=== PATIENT | female | born 1970 | race Hispanic/Latino ===

== ENCOUNTER 2017-04-13 19:08 | Emergency (ER) | payer OTHER ==
[~2017-04-13] VITALS: Ht 152.4 cm; Wt 59.0 kg
[~2017-04-13 19:08] MED LIST: CIPR-225 PO; DOCU-143 PO; HYDR-3812 PO; HYDR-757 PO; METR500T PO; ONDA4TAB8 PO; PANT40TA2 PO; PRD20T PO; PROM25SU43 RC; SULF1TAB35 PO
[2017-04-13] MEDS ORDERED: IBUP200C75 PO (19:24)
[2017-04-13] MEDS ORDERED: CYCLOBENZAPRINE 10 MG (FLEXERIL) TAB PO STA (19:35)
[2017-04-13] MEDS ORDERED: HYDROcodone/APAP 5 MG/325 MG (LORTAB) TAB PO STA (19:35)
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
[2017-04-13] MEDS ORDERED: HYDR-3812 PO (20:51)
[2017-04-13] MEDS ORDERED: CYCL10TA9 PO (20:51)
[2017-04-13] MEDS ORDERED: SULF1TAB35 PO (21:02)
[2017-04-13 21:14] VITALS: BP 126/82
== END 2017-04-13 21:14 | disposition home or self-care (01) ==
LOC: EDUNIT# 19:08 → ER 19:13
DX: S46.912A Strain of unspecified muscle, fascia and tendon at shoulder and upper arm level, left arm, initial encounter (principal); S80.01XA Contusion of right knee, initial encounter; S20.212A Contusion of left front wall of thorax, initial encounter; S09.90XA Unspecified injury of head, initial encounter; L03.012 Cellulitis of left finger; V43.62XA Car passenger injured in collision with other type car in traffic accident, initial encounter; Y92.410 Unspecified street and highway as the place of occurrence of the external cause; Y99.8 Other external cause status
CPT/HCPCS: 70450; 71020; 73030; 73140; 73562; 99282

== ENCOUNTER → 2018-01-19 | Outpatient (CLI) | payer OTHER ==
[~2018-01-19] MED LIST changes: +ACHD5005 PO; +CYCL10TA9 PO; -HYDR-3812 PO; +IBUP200C75 PO
--- NOTE | 2018-01-19 19:03 | Diagnostic Imaging Report ---
INDICATION: Routine screening. No prior mammograms are available for comparison. This is a baseline study. The current study was also evaluated with a Computer Aided Detection (CAD) system. Moderate parenchymal density and heterogeneity is identified bilaterally, limiting the sensitivity of mammography. There are some calcifications in the inferior aspect of the right breast, mid to posterior depth. Additional views including magnification views are recommended. No mass is seen. The axillae are unremarkable. IMPRESSION: Right breast calcifications. Additional views are recommended for further evaluation. ACR BI-RADS Category 0: Incomplete. (Needs additional imaging evaluation). Result letter will be mailed to the patient. Note: At least 10% of breast cancer is not imaged by mammography. Dictated by: Dictated on workstation # [id number]
== END ==
LOC: RAD 10:11
PROVIDERS: ATTEND Nurse Practitioner Family
DX: Z12.31 Encounter for screening mammogram for malignant neoplasm of breast (principal)
CPT/HCPCS: 77067

== ENCOUNTER → 2018-01-27 | Outpatient (CLI) | payer OTHER ==
--- NOTE | 2018-01-30 17:39 | Diagnostic Imaging Report ---
EXAM: Unilateral diagnostic right mammogram. INDICATION: Abnormal screening mammogram. The screening mammogram performed on 01/19/2018 noted microcalcifications in the inferior aspect of the right breast at posterior depth. On the craniocaudad view of this study, there are 2 groups of microcalcifications in this area. One is near midline and the other lies at the same level approximately 1.4 cm laterally. Compression/magnification views of these calcifications show that they are somewhat pleomorphic and technically indeterminate. I would recommend a stereotactic biopsy of the calcifications near midline be performed to exclude malignancy. If these calcifications proved to be malignant, then the other group of microcalcifications may need to be biopsied, as well. IMPRESSION: The calcifications in the right breast are technically indeterminate. A stereotactic biopsy would be recommended to exclude malignancy. These results will be called to Dr. Susy Cruz. ACR category 4, Suspicious. ACR BI-RADS Category 4: Suspicious abnormality. Result letter will be mailed to the patient. Note: At least 10% of breast cancer is not imaged by mammography. Dictated on workstation # [id number]
== END ==
LOC: RAD 08:41
PROVIDERS: ATTEND Nurse Practitioner Family
DX: R92.8 Other abnormal and inconclusive findings on diagnostic imaging of breast (principal)

== ENCOUNTER → 2018-02-22 | Outpatient (CLI) | payer OTHER ==
[~2018-02-22] VITALS: Ht 152.4 cm; Wt 59.0 kg
[~2018-02-22] MED LIST changes: +LIDOCAINE 1% INJ 20 ML 20 ML VIAL INJ ONE; +LIDOCAINE 1% INJ 50 ML (XYLOCAINE) VIAL ONE
[2018-02-22 10:38] VITALS: BP 134/78
[2018-02-22 11:36] VITALS: BP 124/80
--- NOTE | 2018-02-23 21:09 | Diagnostic Imaging Report ---
INDICATION: Abnormal microcalcifications. EXAMINATION: Stereotactic biopsy of right breast. PROCEDURE: The diagnostic mammogram performed on 01/27/2018 noted a group of indeterminate calcifications in the central portion of the right breast. Following aseptic preparation of the skin and administration of local anesthesia, the calcifications in question were biopsied using a stereotactic device. Multiple specimens were obtained. Several of the specimens do appear to contain calcifications. Following the procedure, a clip was inserted. However, the clip did not deploy. The post procedure mammogram performed at a separate workstation did show a defect in the region of the calcifications. The calcifications in question were difficult to identify and I do feel that the area in question has been adequately sampled. The patient tolerated the procedure well and was dismissed in good condition. IMPRESSION: There has been a successful stereotactic biopsy of the microcalcifications in the midportion of the right breast. A final pathology report is pending. Dictated by: Dictated on workstation # [id number]
== END ==
LOC: RAD 10:14
PROVIDERS: ATTEND Nurse Practitioner Family
DX: D05.81 Other specified type of carcinoma in situ of right breast (principal)
CPT/HCPCS: 19081

== ENCOUNTER → 2018-03-06 | Outpatient (CLI) | payer OTHER ==
[~2018-03-06] MED LIST changes: +IBUP-2185 PO; -IBUP200C75 PO; -LIDOCAINE 1% INJ 20 ML 20 ML VIAL INJ ONE; -LIDOCAINE 1% INJ 50 ML (XYLOCAINE) VIAL ONE
--- NOTE | 2018-03-06 16:12 | Diagnostic Imaging Report ---
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 COMPARISON: Correlation is made with mammograms dating back to 01/19/2018. TECHNIQUE: Right-sided CC and ML 3-D mammography was performed. The current study was also evaluated with a Computer Aided Detection (CAD) system. FINDINGS: There is moderate density in the right breast. The grouping of microcalcifications within the posterior aspect of the right breast at the nipple line have been stereotactically removed. There may be a few remaining calcifications. There are additional calcifications just lateral to this at the same depth. These appear to be inferiorly located on the ML view. No associated soft tissue mass is seen. IMPRESSION: Status posterior stereotactic removal of a cluster of microcalcifications in the posterior right breast at inferior depth. There is a grouping just lateral to this which is also suspicious. Sampling of these calcifications with stereotactic biopsy could be performed versus performance of a needle localization procedure including this grouping along the needle tract for surgical excision could be performed. ACR BI-RADS Category 4: Suspicious abnormality. Result letter will be mailed to the patient. Note: At least 10% of breast cancer is not imaged by mammography. Dictated by: Dictated on workstation # [id number]
== END ==
LOC: RAD 13:55
PROVIDERS: ATTEND Nurse Practitioner Family
DX: D05.11 Intraductal carcinoma in situ of right breast (principal); R92.8 Other abnormal and inconclusive findings on diagnostic imaging of breast

== ENCOUNTER 2018-03-17 07:17 | Day surgery (SDC) | payer SELFPAY ==
[~2018-03-17] VITALS: Ht 152.4 cm; Wt 59.0 kg
[~2018-03-17 07:17] MED LIST changes: -IBUP-2185 PO; +IBUP200C75 PO
[2018-03-17] MEDS ORDERED: LIDOCAINE 1% INJ 50 ML (XYLOCAINE) VIAL ONE (07:28)
[2018-03-17 07:30] VITALS: BP 121/94
[2018-03-17] MEDS ORDERED: LIDOCAINE 1% INJ 50 ML (XYLOCAINE) VIAL IJ ONE (07:30)
[2018-03-17] MEDS ORDERED: LACTATED RINGERS 1,000 ML IV PRN (07:41)
[2018-03-17] MEDS ORDERED: BUP/EPI 0.5% 1:200,000 (SENSORCAINE) 30 ML VIAL ONE (07:41)
[2018-03-17] MEDS ORDERED: ceFAZolin INJECTION 1,000 MG in NS (IVPB) 100 ML IV ONE (07:45)
[2018-03-17] MEDS ORDERED: proPOfol 200 MG/20 ML (DIPRIVAN) VIAL IV ONE (08:54)
[2018-03-17] MEDS ORDERED: DEXAMETHASONE 10 MG/ML (DECADRON) 1 ML VIAL ONE (08:54)
[2018-03-17] MEDS ORDERED: ONDANSETRON 4 MG/2 ML (SDV) Z0FRAN ONE (08:55)
[2018-03-17] MEDS ORDERED: LIDOCAINE PF 2% 5 ML (XYLOCAINE) VIAL ONE (08:55)
[2018-03-17] MEDS ORDERED: fentaNYL INJECTION 100 MCG/2 ML AMP ONE ×2 (08:56→10:32)
[2018-03-17] MEDS ORDERED: MIDAZOLAM 2 MG/2 ML (VERSED) VIAL ONE (08:56)
[2018-03-17] MEDS ORDERED: SEVOFLURANE (ULTANE) 15 ML INHAL SOLN ONE ×3 (08:58→10:38)
--- NOTE | 2018-03-17 09:45 | Progress Note-Pre Operative ---
Pre-Operative Progress Note H&P Reviewed The H&P was reviewed, patient examined and no changes noted. 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
--- NOTE | 2018-03-17 10:22 | Diagnostic Imaging Report ---
Indication: Right breast DCIS. The patient presents for needle localization procedure. Findings: The patient was brought to the mammography suite, positioned in the mammography unit. Right breast was placed in ML position and stereotactic imaging was performed for targeting. Cluster of calcifications in the inferior right breast were targeted. The right breast was then prepped and draped in the usual sterile fashion. Small amount of 1% lidocaine was utilized for local anesthesia. A localizing needle was advanced from a medial to lateral approach. Hookwire was deployed and the needle was removed. Followup imaging demonstrates the hookwire passing from the medial to lateral position. The tip of the hookwire is adjacent to the cluster of microcalcifications just lateral to the nipple line. The hookwire does appear to progress through the previously noted region of DCIS along the nipple line on the CC view. Hookwire was affixed to the patient's skin. The patient tolerated the procedure well. Impression: Right breast hookwire placement for surgery, as described. Dictated by: Dictated on workstation # [id number]
[2018-03-17] MEDS ORDERED: ACHD5005 PO (11:11)
--- NOTE | 2018-03-17 11:11 | Operative Report ---
Operative Report Date of Procedure/Surgery Mar 17, 2018 Surgeon (s) CINTIA BERMAN MD Heel Gummer (s): N/A Post-Operative Diagnosis Same Procedure Performed Needle localized lumpectomy right breast Description of Procedure Anesthesia Type: General Estimated blood loss (mL): Minimal Specimen(s) collected/removed Breast tissue with hookwire in place Description of the Procedure Indication for the procedure: This lady was found to have 2 separate clusters of microcalcifications, adjacent to each other, involving the right breast, on a recent screening mammogram. The medial of the 2 was subjected to stereotactic biopsy, confirming DCIS. The clip associated with the biopsy technique did not get deployed due to some technical reasons. After an adequate review of the mammogram with our radiologist, Dr. Tran, it was felt reasonable to excise both with 1 hookwire. Informed consent was obtained after reviewing the procedure in detail. Description of procedure: Following her admission to the outpatient surgery area , a hook wire was placed from a medial approach by Dr. Tran, the radiologist. She was brought to the operating room and general anesthesia induced. A gram of Ancef was administered intravenously as prophylaxis against wound infection. Sequential compression devices were placed around her legs, to minimize the risk of venous thrombosis. Right breast was prepared and draped in the usual sterile manner. Pre-emptive analgesia was established using 0.5 percent Marcaine with epinephrine. A 4 cm incision was made in a radial fashion, centered on the wire and breast tissue surrounding the tract excised. The tissue was then subjected to conventional mammogram. The most lateral cluster of calcification was not found and therefore, an additional piece of tissue was excised separately. Hemostasis was achieved using cautery and the incision closed using 3-0 Vicryl for the subcutaneous tissue and 4-0 Vicryl skin, in a subcuticular fashion. She tolerated the procedure well, was extubated in the operating room and taken to the recovery room in a stable condition. Findings of the Procedure See op report Allergies and Home Medications Allergies Coded Allergies: sulfamethoxazole (Unverified Adverse Reaction, Unknown, 03/17/18) trimethoprim (Unverified Adverse Reaction, Unknown, 03/17/18) Home Medications Ibuprofen 200 Mg Capsule, 400 MG PO Q4H PRN for PAIN-MILD TO MODERATE, (Reported ) Patient Home Medication List Home Medication List Reviewed: Yes CINTIA BERMAN MD Mar 17, 2018 11:11 am
--- NOTE | 2018-03-17 11:12 | Discharge Inst-Simple/Standard ---
Discharge Inst-Standard Discharge Medications New, Converted or Re-Newed RX: RX on Chart Patient Instructions/Follow Up Plan of Care/Instructions/FU: Dressings off in 48 hours. Follow-up in 2 weeks Activity as Tolerated: Yes Discharge Diet: No Restrictions CINTIA BERMAN MD Mar 17, 2018 11:12 am
[2018-03-17] MEDS ORDERED: HYDROmorphone 2 MG/ML VIAL (DILAUDID) ONE (11:13)
[2018-03-17] MEDS ORDERED: HYDROmorphone 2 MG/ML VIAL (DILAUDID) IVP PRN (11:15)
[2018-03-17] MEDS ORDERED: MEPERIDINE (DEMEROL) INJ 50 MG/ML IVP PRN (11:15)
[2018-03-17] MEDS ORDERED: fentaNYL INJECTION 100 MCG/2 ML AMP IVP PRN (11:15)
[2018-03-17] MEDS ORDERED: ONDANSETRON 4 MG/2 ML (SDV) Z0FRAN IVP PRN (11:15)
[2018-03-17 12:05] VITALS: BP 125/81
[2018-03-17 12:35] VITALS: BP 124/67
[2018-03-17 13:05] VITALS: BP 112/68
--- NOTE | 2018-03-17 13:24 | Diagnostic Imaging Report ---
Indication: Right breast needle localization and lumpectomy. Specimen radiography demonstrates the hookwire located within the sample. There are several punctate calcifications adjacent to the thickened portion of the distal wire. There also is questionable minimal opacification is in the tissues just distal to the wire tip. Impression: Hookwire and several calcifications are located within the specimen. Discussion of the findings with Dr. Isaacs was performed. Dr. Isaacs will attempt to obtain some additional tissue slightly more lateral in the right breast. Dictated by: Dictated on workstation # [id number]
--- NOTE | 2018-03-17 14:08 | Anesthesia-General Post-Op ---
General Patient Condition Mental Status/LOC: Same as Preop Cardiovascular: Satisfactory Nausea/Vomiting: Absent Respiratory: Satisfactory Pain: Controlled Complications: Absent Post Op Complications Complications None Follow Up Care/Instructions Patient Instructions None needed. Anesthesia/Patient Condition Patient Condition Patient was seen after surgery and prior to her discharge and she was doing well , no complaints, stable vital signs, no apparent adverse anesthesia problems. DI PUENTE DO Mar 17, 2018 14:08
== END 2018-03-17 13:40 | disposition home or self-care (01) ==
LOC: RAD 07:17
PROVIDERS: ATTEND Surgery
DX: D05.11 Intraductal carcinoma in situ of right breast (principal); N60.91 Unspecified benign mammary dysplasia of right breast
CPT/HCPCS: 76098; 84703; 87081; 88305; 88307

== ENCOUNTER 2018-06-20 15:26 | Outpatient (RCR) | payer SELFPAY ==
[~2018-06-20 15:26] MED LIST changes: +IBUP-2185 PO; -IBUP200C75 PO
== END 2018-07-05 | disposition home or self-care (01) ==
LOC: ONC 15:26
PROVIDERS: ATTEND Internal Medicine Hematology & Oncology
DX: Z51.0 Encounter for antineoplastic radiation therapy (principal); D05.11 Intraductal carcinoma in situ of right breast
CPT/HCPCS: 77290; 77295; 77300; 77307; 77334; 77336; 77417; 99204; 99214

== ENCOUNTER 2018-08-08 16:13 | Outpatient (RCR) | payer SELFPAY ==
[~2018-08-08 16:13] MED LIST changes: +HYDR-4226 PO; -HYDR-757 PO
== END 2018-08-20 | disposition home or self-care (01) ==
LOC: ONC 16:13
PROVIDERS: ATTEND Internal Medicine Hematology & Oncology
DX: D05.11 Intraductal carcinoma in situ of right breast (principal)
CPT/HCPCS: 99213

== ENCOUNTER 2018-10-27 12:59 | Outpatient (RCR) | payer SELFPAY | END 2019-01-25 | disposition home or self-care (01) | LOC: EDBD → ONC 12:59 | PROVIDERS: ATTEND Internal Medicine Hematology & Oncology | DX: D05.11 Intraductal carcinoma in situ of right breast (principal); Z17.0 Estrogen receptor positive status [ER+]; Z79.811 Long term (current) use of aromatase inhibitors; Z92.3 Personal history of irradiation | CPT/HCPCS: 99213 ==

== ENCOUNTER 2019-01-26 11:54 | Outpatient (RCR) | payer OTHER ==
[2019-04-27 10:46] LABS: BASOPHILS % (AUTO) 1 % (0-10); EOSINOPHILS # (AUTO) 0.1 10^3/uL (0.0-0.3); EOSINOPHILS % (AUTO) 2 % (0-10); HEMATOCRIT 41 % (35-52); HEMOGLOBIN 13.5 G/DL (11.5-16.0); LYMPHOCYTES # (AUTO) 1.9 X 10^3 (1.0-4.0); LYMPHOCYTES % (AUTO) 30 % (12-44); MEAN CORPUSCULAR HEMOGLOBIN 28 PG (25-34); MEAN CORPUSCULAR HGB CONC 33 G/DL (32-36); MEAN CORPUSCULAR VOLUME 85 FL (80-99); MEAN PLATELET VOLUME 10.7 FL (7.4-10.4); MONOCYTES # (AUTO) 0.4 X 10^3 (0.0-1.0); MONOCYTES % (AUTO) 6 % (0-12); NEUTROPHILS # (AUTO) 3.8 X 10^3 (1.8-7.8); NEUTROPHILS % (AUTO) 61 % (42-75); PLATELET COUNT 238 10^3/uL (130-400); RED CELL DISTRIBUTION WIDTH 13.4 % (10.0-14.5); WHITE BLOOD COUNT 6.1 10^3/uL (4.3-11.0)
[2019-04-27 11:00] LABS: ALANINE AMINOTRANSFERASE 46 U/L (0-55); ALBUMIN 4.3 GM/DL (3.2-4.5); ALKALINE PHOSPHATASE 154 U/L (40-136); BILIRUBIN,TOTAL 0.7 MG/DL (0.1-1.0); BUN/CREATININE RATIO 15; CALCIUM 9.8 MG/DL (8.5-10.1); CARBON DIOXIDE 25 MMOL/L (21-32); CHLORIDE 107 MMOL/L (98-107); CREATININE SERUM 0.89 MG/DL (0.60-1.30); GFR ESTIMATED > 60; GLUCOSE 149 MG/DL (70-105); POTASSIUM 3.5 MMOL/L (3.6-5.0); SODIUM 141 MMOL/L (135-145); TOTAL PROTEIN 7.7 GM/DL (6.4-8.2)
== END 2019-04-26 | disposition home or self-care (01) ==
LOC: ONC 11:54
PROVIDERS: ATTEND Internal Medicine Hematology & Oncology
DX: D05.11 Intraductal carcinoma in situ of right breast (principal); Z17.0 Estrogen receptor positive status [ER+]; Z79.811 Long term (current) use of aromatase inhibitors; Z92.3 Personal history of irradiation
CPT/HCPCS: 99213

== ENCOUNTER → 2019-02-05 | Outpatient (CLI) | payer OTHER ==
--- NOTE | 2019-02-05 20:34 | Diagnostic Imaging Report ---
INDICATION: Routine screening. Comparison is made with prior mammogram from 01/19/2018. 2-D and 3-D bilateral screening mammography was performed with Computer-Aided Detection (CAD) system. FINDINGS: Both breasts are heterogeneously dense, limiting the sensitivity of mammography. Postsurgical changes to the right breast are noted. Previously seen calcifications are no longer present. No new mass or new malignant-appearing microcalcifications are seen. The axillae are unremarkable. IMPRESSION: No mammographic features suspicious for malignancy are identified. ACR BI-RADS Category 2: Benign findings. Result letter will be mailed to the patient. Note: At least 10% of breast cancer is not imaged by mammography. Dictated by: Dictated on workstation # [id number]
== END ==
LOC: RAD 09:19
PROVIDERS: ATTEND Internal Medicine Hematology & Oncology
DX: Z12.31 Encounter for screening mammogram for malignant neoplasm of breast (principal); D05.11 Intraductal carcinoma in situ of right breast
CPT/HCPCS: 77067

== ENCOUNTER 2019-08-29 09:02 | Outpatient (RCR) | payer BC, OTHER | END 2019-10-11 | disposition home or self-care (01) | LOC: ONC 09:02 | PROVIDERS: ATTEND Internal Medicine Hematology & Oncology | DX: D05.11 Intraductal carcinoma in situ of right breast (principal); Z17.0 Estrogen receptor positive status [ER+]; Z79.811 Long term (current) use of aromatase inhibitors; Z92.3 Personal history of irradiation | CPT/HCPCS: 99213 ==

== ENCOUNTER 2019-10-31 11:02 | Outpatient (RCR) | payer BC, OTHER | END 2020-01-29 | disposition home or self-care (01) | LOC: ONC 11:02 | PROVIDERS: ATTEND Internal Medicine Hematology & Oncology | DX: C50.911 Malignant neoplasm of unspecified site of right female breast (principal); Z92.3 Personal history of irradiation; Z17.0 Estrogen receptor positive status [ER+]; Z79.811 Long term (current) use of aromatase inhibitors; Z90.49 Acquired absence of other specified parts of digestive tract; Z98.890 Other specified postprocedural states | CPT/HCPCS: 99213 ==

== ENCOUNTER → 2020-05-29 | Outpatient (CLI) | payer BC, OTHER ==
[2020-05-29 16:11] LABS: BASOPHILS % (AUTO) 0 % (0-10); EOSINOPHILS # (AUTO) 0.1 10^3/uL (0.0-0.3); EOSINOPHILS % (AUTO) 1 % (0-10); HEMATOCRIT 39 % (35-52); HEMOGLOBIN 12.9 G/DL (11.5-16.0); LYMPHOCYTES # (AUTO) 2.5 X 10^3 (1.0-4.0); LYMPHOCYTES % (AUTO) 30 % (12-44); MEAN CORPUSCULAR HEMOGLOBIN 28 PG (25-34); MEAN CORPUSCULAR HGB CONC 34 G/DL (32-36); MEAN CORPUSCULAR VOLUME 82 FL (80-99); MEAN PLATELET VOLUME 10.5 FL (7.4-10.4); MONOCYTES # (AUTO) 0.6 X 10^3 (0.0-1.0); MONOCYTES % (AUTO) 8 % (0-12); NEUTROPHILS # (AUTO) 5.1 X 10^3 (1.8-7.8); NEUTROPHILS % (AUTO) 61 % (42-75); PLATELET COUNT 271 10^3/uL (130-400); RED CELL DISTRIBUTION WIDTH 13.2 % (10.0-14.5); WHITE BLOOD COUNT 8.4 10^3/uL (4.3-11.0)
== END ==
LOC: EDSTATUS 01-30 16:23 → ONC 16:03
PROVIDERS: ATTEND Internal Medicine Hematology & Oncology
DX: D05.11 Intraductal carcinoma in situ of right breast (principal); Z90.11 Acquired absence of right breast and nipple; Z92.3 Personal history of irradiation
CPT/HCPCS: 85025; G0463; 99213

== ENCOUNTER → 2020-06-04 | Outpatient (CLI) | payer BC, OTHER ==
[~2020-06-04] MED LIST changes: +HOLD METFORMIN - RECEIVED CONTRAST 20 ML VIAL IV SCH; +IOHEXOL 350 MG/ML 100 ML (OMNIPAQUE 350) VIAL IV ONE; +NS 100 ML (IVPB) BAG IV ONE
--- NOTE | 2020-06-05 09:31 | Diagnostic Imaging Report ---
INDICATION: Routine screening. Comparison is made with prior mammogram from 02/05/2019 and 01/19/2018. 2-D and 3-D bilateral screening mammography was performed with CAD. Both breasts are heterogeneously dense, limiting the sensitivity of mammography. Overall parenchymal pattern is stable. No dominant mass or malignant appearing microcalcifications are seen. Axillae are unremarkable. IMPRESSION: BI-RADS Category 1 No mammographic features suspicious for malignancy are identified. ACR BI-RADS Category 1: Negative. Result letter will be mailed to the patient. Note: At least 10% of breast cancer is not imaged by mammography. Dictated by: Dictated on workstation # [id number]
== END ==
LOC: RAD 02-04 16:27
PROVIDERS: ATTEND Internal Medicine Hematology & Oncology
DX: Z12.31 Encounter for screening mammogram for malignant neoplasm of breast (principal); D05.11 Intraductal carcinoma in situ of right breast
CPT/HCPCS: 77063; 77067

== ENCOUNTER → 2021-01-09 | Outpatient (CLI) | payer BC, OTHER ==
[~2021-01-09] MED LIST changes: -HOLD METFORMIN - RECEIVED CONTRAST 20 ML VIAL IV SCH; -IOHEXOL 350 MG/ML 100 ML (OMNIPAQUE 350) VIAL IV ONE; -NS 100 ML (IVPB) BAG IV ONE
[2021-01-09 14:18] LABS: BASOPHILS % (AUTO) 1 % (0-10); EOSINOPHILS # (AUTO) 0.1 10^3/uL (0.0-0.3); EOSINOPHILS % (AUTO) 2 % (0-10); HEMATOCRIT 41 % (35-52); HEMOGLOBIN 13.4 g/dL (11.5-16.0); LYMPHOCYTES # (AUTO) 2.9 10^3/uL (1.0-4.0); LYMPHOCYTES % (AUTO) 34 % (12-44); MEAN CORPUSCULAR HEMOGLOBIN 28 pg (25-34); MEAN CORPUSCULAR HGB CONC 32 g/dL (32-36); MEAN CORPUSCULAR VOLUME 86 fL (80-99); MEAN PLATELET VOLUME 10.6 fL (9.0-12.2); MONOCYTES # (AUTO) 0.8 10^3/uL (0.0-1.0); MONOCYTES % (AUTO) 9 % (0-12); NEUTROPHILS # (AUTO) 4.7 10^3/uL (1.8-7.8); NEUTROPHILS % (AUTO) 55 % (42-75); PLATELET COUNT 264 10^3/uL (130-400); WHITE BLOOD COUNT 8.6 10^3/uL (4.3-11.0)
== END ==
LOC: ONC 14:03
PROVIDERS: ATTEND Internal Medicine Hematology & Oncology
DX: Z12.31 Encounter for screening mammogram for malignant neoplasm of breast (principal); D05.11 Intraductal carcinoma in situ of right breast; Z90.11 Acquired absence of right breast and nipple; Z92.3 Personal history of irradiation
CPT/HCPCS: 85025; G0463; 99213

== ENCOUNTER → 2021-06-05 | Outpatient (CLI) | payer BC, OTHER ==
[~2021-06-05] MED LIST changes: -SULF1TAB35 PO; +SULF1TAB38 PO
--- NOTE | 2021-06-08 11:53 | Diagnostic Imaging Report ---
Indication: 2-D and 3-D digital screening with CAD. Compared with the studies of 05/2020, 01/2019 and / as well as 01/2018. Findings: Scattered fibroglandular densities in the breast unchanged. No mass, architecture distortion, spiculated lesion or suspicious calcifications. IMPRESSION: Stable negative mammograms. ACR BI-RADS Category 1: Negative. Result letter will be mailed to the patient. Note: At least 10% of breast cancer is not imaged by mammography. BI-RADS Category 1 Dictated by: Dictated on workstation # [id number]
== END ==
LOC: RAD 15:32
PROVIDERS: ATTEND Internal Medicine Hematology & Oncology
DX: Z12.31 Encounter for screening mammogram for malignant neoplasm of breast (principal); D05.11 Intraductal carcinoma in situ of right breast
CPT/HCPCS: 77063; 77067

== ENCOUNTER → 2021-07-03 | Outpatient (CLI) | payer BC ==
[2021-07-03 15:17] LABS: BASOPHILS # (AUTO) 0.1 10^3/uL (0.0-0.1); BASOPHILS % (AUTO) 1 % (0-10); EOSINOPHILS # (AUTO) 0.1 10^3/uL (0.0-0.3); EOSINOPHILS % (AUTO) 1 % (0-10); HEMATOCRIT 39 % (35-52); HEMOGLOBIN 12.7 g/dL (11.5-16.0); LYMPHOCYTES # (AUTO) 2.8 10^3/uL (1.0-4.0); LYMPHOCYTES % (AUTO) 32 % (12-44); MEAN CORPUSCULAR HEMOGLOBIN 28 pg (25-34); MEAN CORPUSCULAR HGB CONC 33 g/dL (32-36); MEAN CORPUSCULAR VOLUME 84 fL (80-99); MEAN PLATELET VOLUME 10.6 fL (9.0-12.2); MONOCYTES # (AUTO) 0.8 10^3/uL (0.0-1.0); MONOCYTES % (AUTO) 9 % (0-12); NEUTROPHILS % (AUTO) 57 % (42-75); PLATELET COUNT 256 10^3/uL (130-400); WHITE BLOOD COUNT 8.9 10^3/uL (4.3-11.0)
[2021-07-03 15:25] LABS: ALBUMIN 4.1 GM/DL (3.2-4.5); POTASSIUM 3.5 MMOL/L (3.6-5.0)
[2021-07-03 15:26] LABS: CALCIUM 9.3 MG/DL (8.5-10.1)
[2021-07-03 15:27] LABS: TOTAL PROTEIN 7.4 GM/DL (6.4-8.2)
[2021-07-03 15:29] LABS: BILIRUBIN,TOTAL 0.3 MG/DL (0.1-1.0)
[2021-07-03 15:31] LABS: CREATININE SERUM 0.76 MG/DL (0.60-1.30)
== END ==
LOC: ONC 15:00
PROVIDERS: ATTEND Internal Medicine Hematology & Oncology
DX: D05.11 Intraductal carcinoma in situ of right breast (principal); Z92.3 Personal history of irradiation; Z98.890 Other specified postprocedural states; Z90.11 Acquired absence of right breast and nipple
CPT/HCPCS: 80053; 85025; G0463; 99213

== ENCOUNTER 2021-11-12 05:28 | Outpatient (RCR) | payer BC ==
[~2021-11-12] VITALS: Ht 157.5 cm; Wt 67.0 kg
[~2021-11-12 05:28] MED LIST changes: +CYCL10TA25 PO; -CYCL10TA9 PO
== END 2021-11-12 08:51 | disposition home or self-care (01) ==
LOC: PREOP 05:28
PROVIDERS: ATTEND Surgery
DX: Z01.818 Encounter for other preprocedural examination (principal)

== ENCOUNTER 2021-11-16 08:23 | Day surgery (SDC) | payer BC ==
[~2021-11-16] VITALS: Ht 157.5 cm; Wt 67.0 kg
[2021-11-16] MEDS ORDERED: LACTATED RINGERS 1,000 ML IV ONE (08:42)
[2021-11-16] MEDS ORDERED: LACTATED RINGERS 1,000 ML IV STA (08:51)
[2021-11-16] MEDS ORDERED: HURRICAINE EXT TUBE (BENZOCAINE) XX PRN (09:00)
--- NOTE | 2021-11-16 09:00 | Progress Note-Pre Operative ---
Pre-Operative Progress Note H&P Reviewed The H&P was reviewed, patient examined and no changes noted. Time Seen by Provider: 08:56 Date H&P Reviewed: Nov 16, 2021 Time H&P Reviewed: 08:56 Pre-Operative Diagnosis: Gastritis, Screening colon LATA RANKIN DO Nov 16, 2021 09:00
[2021-11-16 09:30] VITALS: BP 132/72
[2021-11-16] MEDS ORDERED: PROPOFOL INJECTION 50 ML IV ONE (10:14)
[2021-11-16] MEDS ORDERED: MIDAZOLAM 2 MG/2 ML (VERSED) VIAL ONE (10:14)
[2021-11-16 10:40] VITALS: BP 96/54
--- NOTE | 2021-11-16 10:41 | Progress Note-Post Operative ---
Post-Operative Progess Note Surgeon (s)/Pharmacist'S Aide (s) Surgeon LATA RANKIN DO Pharmacist'S Aide: Deon Arciniega, MSIII Pre-Operative Diagnosis Gastritis, Screening colon Post-Operative Diagnosis Gastritis Hiatal hernia Diverticula Int hemorrhoids Procedure & Operative Findings Date of Procedure 11/16/21 Procedure Performed/Findings EGD with bx Colonoscopy PROCEDURE NOTE: After informed consent was obtained, the patient was brought to the endoscopy suite, placed in bed in left lateral decubitus position. She was administered IV sedation by the CABLE PULLER who then monitored vitals the entire time, heart rate, blood pressure and pulse ox and the scope was inserted down the mouth through the esophagus into the stomach. Once in the stomach pushed towards the antrum and noted some mild gastritis. Pushed past the antrum into the duodenum; duodenum looked good. Pulled back and did a biopsy of antrum, then retroflexed the scope, saw a 1 - 1 1/2 cm hiatal hernia, took a picture of this and then pulled the scope into the GE junction, took another picture of the hiatal hernia and then did a biopsy of the GE junction. Pushed the scope back into the stomach, suctioned all the air out of the stomach. At this point pulled the scope up the esophagus and out the mouth. Switched camera, switched gloves, went down below, started the colonoscopy. Pushed all the way into about 140 cm to get all the way to cecum. On the way in noted diverticula in the left and right side of the colon. Once in the Cecum took a picture of the appendiceal orifice and noted the ileocecal valve. Then slowly withdrew the scope, insufflating to look circumferentially at the verdin starting in the cecum, up the ascending colon to the hepatic flexure, then down the transverse colon, splenic flexure, into the descending colon, down into the sigmoid and finally into the rectum, retroflexed in the r ectal vault, saw some minimal internal hemorrhoids and took a picture of this. The patient tolerated the procedure and she recovered in the endoscopy suite. Anesthesia Type IV sedation by CABLE PULLER Estimated Blood Loss Estimated blood loss (mL): scant Specimens/Packing Specimens Removed Antral bx GE jxn bx LATA RANKIN DO Nov 16, 2021 10:41
--- NOTE | 2021-11-16 10:42 | Endoscopy Discharge Instruct ---
Endo Procedure/Findings Findings 1.: Gastritis 2.: Hiatal Hernia 3.: Diverticulosis 4.: Internal Hemorrhoids Discharge Instructions - Activity: You might feel a little sleepy until tomorrow. This is due to the medicine you received to relax you. Until tomorrow, you should: NOT drive a car, operate machinery or power tools. NOT drink any alcoholic beverages. NOT make any important decisions or sign importortant papers. Do not return to work until tomorrow, unless otherwise instructed. Resume previous activities tomorrow. Diet: Start by taking liquids. If you tolerate liquids, advance to solid food. 1.: Colonscopy in 10 years 2.: EGD in 3 years Notify Physician - If you experience excessive bleeding, unusual abdominal pain, fever, or chest pain, contact your doctor immediately. LATA RANKIN DO Nov 16, 2021 10:42
[2021-11-16 10:45] VITALS: BP 112/63
[2021-11-16 10:50] VITALS: BP 117/67
[2021-11-16 11:10] VITALS: BP 120/69
[2021-11-16 11:25] VITALS: BP 120/69
--- NOTE | 2021-11-16 11:41 | Anesthesia-General Post-Op ---
MAC Patient Condition Mental Status/LOC: Same as Preop Cardiovascular: Satisfactory Nausea/Vomiting: Absent Respiratory: Satisfactory Pain: Controlled Complications: Absent Post Op Complications Complications None Follow Up Care/Instructions Patient Instructions None needed. Anesthesiology Discharge Order Discharge Order Patient is doing well, no complaints, stable vital signs, no apparent adverse anesthesia problems. No complications reported per nursing. MACO TORO CRNA Nov 16, 2021 11:41
== END 2021-11-16 11:25 | disposition home or self-care (01) ==
LOC: ENDO 08:23
PROVIDERS: ATTEND Surgery
DX: Z12.11 Encounter for screening for malignant neoplasm of colon (principal); K29.50 Unspecified chronic gastritis without bleeding; K22.70 Barrett's esophagus without dysplasia; K44.9 Diaphragmatic hernia without obstruction or gangrene; K57.30 Diverticulosis of large intestine without perforation or abscess without bleeding; K64.8 Other hemorrhoids; K21.9 Gastro-esophageal reflux disease without esophagitis; E66.9 Obesity, unspecified; Z68.27 Body mass index [BMI] 27.0-27.9, adult
CPT/HCPCS: 87636; 88305

== ENCOUNTER 2022-03-03 15:26 | Emergency (ER) | payer BC ==
[~2022-03-03] VITALS: Ht 157 cm; Wt 66.0 kg
--- NOTE | 2022-03-03 16:07 | ED Fall/Injury ---
General Chief Complaint: Trauma-Non Activation Stated Complaint: FALL Nursing Triage Note: ARRIVED VIA AMB TO [facility]. STATES SHE TRIPPED OVER A STEP AT 1340 TODAY CAUSING HER TO FALL. COMPLAINS OF NOSE AND UPPER LIP PAIN AND RIGHT HAND/WRIST PAIN. PT THINKS SHE WAS KNOCKED OUT ET DOES NOT REMEMBER DRIVING HOME. Source: patient Exam Limitations: no limitations (SUNSHINE HOROWITZ APRN) History of Present Illness Date Seen by Provider: Mar 03, 2022 Time Seen by Provider: 16:07 Initial Comments This is a 51-year-old German speaking female who presented to the ER via POV with her friend for complaints of right hand pain, swollen lip with laceration, nose pain after sustaining a fall around 1340 this afternoon. 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 States she tripped off small step today onto concrete and fell forward catching her right hand, lip, and nose. No abrasion to head. Denies neck pain. States she only has pain in her hand, lip, and face. Denies dizziness, changes in vision, headache, nausea, vomiting. She believes her Tetanus is up to date but is unable to recall date. (SUNSHINE HOROWITZ APRN) Allergies and Home Medications Allergies Coded Allergies: sulfamethoxazole (Unverified Adverse Reaction, Unknown, 03/17/18) trimethoprim (Unverified Adverse Reaction, Unknown, 03/17/18) Patient Home Medication List Home Medication List Reviewed: Yes (SUNSHINE HOROWITZ APRN) Amoxicillin/Potassium Clav (Amox Tr-K Clv 875-125 mg Tab) 1 Each Tablet, 1 EACH PO BID Prescribed by: SUNSHINE HOROWITZ on 03/03/221747 Hydrocodone/Acetaminophen (Hydrocodone-Acetamin 5-325 mg) 1 Each Tablet, 1 TAB PO Q6H PRN for PAIN-MODERATE (5-7) Prescribed by: SUNSHINE HOROWITZ on 03/03/221748 Review of Systems Review of Systems Constitutional: no symptoms reported Eyes: No Symptoms Reported Ears, Nose, Mouth, Throat: see HPI Respiratory: no symptoms reported Cardiovascular: no symptoms reported Gastrointestinal: no symptoms reported Genitourinary: no symptoms reported Musculoskeletal: see HPI Skin: see HPI Psychiatric/Neurological: No Symptoms Reported (SUNSHINE HOROWITZ APRN) Past Lzjnpbv-Wsrmya-Atjjtw Hx Patient Social History Tobacco Use?: No Substance use?: No Alcohol Use?: No (SUNSHINE HOROWITZ APRN) Immunizations Up To Date First/Initial COVID19 Vaccinat: NO COVID19 Vaccine Exercise Rider: JHONY (SUNSHINE HOROWITZ APRN) Seasonal Allergies Seasonal Allergies: No (SUNSHINE HOROWITZ APRN) Past Medical History Surgeries: Yes (METAL IN RIGHT WRIST, SKIN GRAFT ON LEGS) Orthopedic, Tubal Ligation Respiratory: No (12YRS AGO HAD SOME PROBLEM AND HAD BRONCH IN [place]) Cardiac: No Neurological: No Reproductive Disorders: No Female Reproductive Disorders: Denies 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 Sexually Transmitted Disease: No HIV/AIDS: No Gastrointestinal: Yes Chronic Diarrhea Musculoskeletal: Yes (HAS SOME LEG PAIN-FROM ACCIDENT) Fractures Endocrine: No Loss of Vision: Denies Cancer: Yes Breast Psychosocial: No Integumentary: No Blood Disorders: No Adverse Reaction/Blood Tranf: No (SUNSHINE HOROWITZ APRN) Family Medical History No Pertinent Family Hx (SUNSHINE HOROWITZ APRN) Physical Exam Vital Signs Vital Signs - First Documented 03/03/22 15:35 Temp 36.3 Pulse 70 Resp 16 B/P (MAP) 145/84 (104) Pulse Ox 99 O2 Delivery Room Air (RAY COLLINS MD) Vital Signs Capillary Refill : Less Than 3 Seconds (SUNSHINE HOROWITZ APRN) Height, Weight, BMI Height: 5'0.00" Weight: 130lbs. 0.0oz. 58.092670kv; 26.00 BMI Method:Stated General Appearance: WD/WN, no apparent distress HEENT: PERRL/EOMI, normal ENT inspection, TMs normal, pharynx normal, other (1cm inner upper lip laceration, moderate swelling of upper lip, abrasion to bridge of nose ) Neck: non-tender, full range of motion, supple, normal inspection, other (no step off, deformities appreciated. ) Cardiovascular: regular rate, rhythm, no murmur Respiratory: lungs clear, normal breath sounds, no respiratory distress, no accessory muscle use Gastrointestinal: normal bowel sounds, non tender, soft Back: normal inspection, no vertebral tenderness Extremities: normal range of motion, normal inspection, swelling (and bruising of right dorsal side of hand ) Neurologic/Psychiatric: no motor/sensory deficits, alert, normal mood/affect, oriented x 3 Skin: normal color, warm/dry Lymphatic: no adenopathy (SUNSHINE HOROWITZ APRN) [place] Coma Score Best Eye Response: (4) Open Spontaneously Best Verbal Response: (5) Oriented Best Motor Response: (6) Obeys Commands (SUNSHINE HOROWITZ APRN) Progress/Results/Core Measures Results/Orders Vital Signs/I&O 03/03/22 03/03/22 15:35 18:00 Temp 36.3 Pulse 70 76 Resp 16 B/P (MAP) 145/84 (104) 140/73 Pulse Ox 99 97 O2 Delivery Room Air (RAY COLLINS MD) Blood Pressure Mean: 104 Progress Progress Note : Progress Note Patient examined and in no acute distress. X-ray of hand neg for acute fractures. CT head negative. Cleansed abrasions with saline. Had patient irrigate mouth with sterile water. Applied topical viscous lidocaine to inner lip. Was able to approximate wound edges with (2) 4-0 monocryl sutures. Tolerated well. Provided head injury precautions for return. Verbalized understanding. (SUNSHINE HOROWITZ APRN) Diagnostic Imaging Comments [facility] [place] [place] NAME: ANDREARUDOLPHGIAN RICHARDSON [facility] REC#: [id number] PT STATUS: REG ER : 1970 PHYSICIAN: SUNSHINE HOROWITZ APRN ADMIT DATE: 03/03/22/ER Signed Date of Exam:03/03/22 HAND, RIGHT, 3 VIEWS INDICATION: Right hand pain. TECHNIQUE: AP, oblique, and lateral views of the right hand were obtained. FINDINGS: No fracture or acute bony abnormality is seen. A plate and screws are seen in the distal radius. There is no acute appearing abnormality. IMPRESSION: Negative right hand. Dictated by: Dictated on workstation # [id number] Dict: 03/03/22 162 Trans: 03/03/221646 [id number] Interpreted by: SKYLER SIMS MD Electronically signed by: SKYLER SIMS MD 03/03/225 Reviewed: Reviewed by Ut Diagonstic Imaging: CT Comments [facility] [place] NAME: GIAN FUENTES [facility] REC#: [id number] PT STATUS: REG ER : 1970 PHYSICIAN: SUNSHINE HOROWITZ APRN ADMIT DATE: 03/03/22/ER Signed Date of Exam:03/03/22 CT HEAD/MAXILLOFACIAL WO CLINICAL INDICATION: Patient tripped over step at 1340 hours today causing her to fall. Patient complains of nose and upper lip pain and right hand/wrist pain. EXAM: Axial Head CT without IV contrast with sagittal and coronal reformations. Axial Maxillofacial CT scan without IV contrast with sagittal and coronal reformations. Auto Exposure Controls were utilized during the CT exam to meet ALARA standards for radiation dose reduction. COMPARISON: Head CT without contrast dated 04/13/2017. FINDINGS: Head and maxillofacial CT: There is no evidence of acute cerebral infarct, intracranial hemorrhage, or gross mass effect. The brain parenchymal volume appears appropriate for patient's age. There are subtle patchy areas of low-attenuation white matter changes involving both cerebral hemispheres, likely representing mild chronic small vessel ischemic disease. There is normal montoya-white matter distinction. There is no significant midline shift or herniation. There is no evidence of hydrocephalus. The basal cisterns are unremarkable. There is slight bony irregularity involving left nasal bone of unknown age. There is no skull or maxillofacial fracture. The skull, extracranial soft tissue, and orbits are unremarkable. There is moderate fluid and mucosal thickening involving the sphenoid sinus. Temporal bones show no significant abnormality. IMPRESSION: 1: There is no evidence of acute intracranial process. There is no intracranial hemorrhage. 2: There is slight bony irregularity involving left nasal bone of unknown age. Clinical correlation for pain in this region would better evaluate. 3: There is no other concern for skull or maxillofacial fracture. Dictated by: Dictated on workstation # [id number] Dict: 03/03/221655 Trans: 03/03/221716 AS6 [id number] Interpreted by: STAR IRELAND MD Electronically signed by: STAR IRELAND MD 03/03/221716 (SUNSHINE HOROWITZ APRN) Departure Impression Primary Impression: Fall Additional Impressions: Lip laceration Hand contusion Nasal bone fx-closed Disposition: 01 HOME, SELF-CARE Condition: Improved Departure-Patient Inst. Decision time for Depature: 17:36 (SUNSHINE HOROWITZ SHAMPOO ASSISTANT) Referrals: NO,LOCAL PHYSICIAN (PCP/Family) Primary Care Physician Patient Instructions: Wound Care ED Add. Discharge Instructions: Plan: 1. May take Tylenol as needed for pain per package. Take Hanna-tab for breakthrough pain only. DO NOT DRIVE while taking. 2. Take all of your antibiotics as directed and complete full course. 3. Sleep with head reclined for next 72 hours. Apply ice 20 minutes at a time for swelling. 4. Your sutures are dissolvable, avoid pulling, biting, or picking at them. 5. Monitor for any signs of infection such as fever, yellow/greenish drainage, nausea, vomiting, increased redness or swelling. Follow-up with your doctor or return if symptoms develop. 6. Have someone stay with you for the next 24 hours. Have them awaken you every 2 hours through the night to make sure that you awaken easily. 7. Return immediately if you start having severe headache or worst headache of your life, vision changes such as blurred vision or double vision, changes in the pupil (black part of your eye) size, nausea, vomiting, weakness, slurred speech, or any other new or concerning symptoms. All discharge instructions reviewed with patient and/or family. Voiced understanding. Scripts Hydrocodone/Acetaminophen (Hydrocodone-Acetamin 5-325 mg) 1 Each Tablet 1 TAB PO Q6H PRN for PAIN-MODERATE (5-7), #10 TAB 0 Refills Prov: SUNSHINE HOROWITZ APRN 03/03/22 Amoxicillin/Potassium Clav (Amox Tr-K Clv 875-125 mg Tab) 1 Each Tablet 1 EACH PO BID for 7 Days, #13 TAB 0 Refills Prov: SUNSHINE HOROWITZ APRN 03/03/22 ATTENDING PHYSICIAN NOTE: I was physically present as attending physician in the emergency department during the care of this patient, but I was not directly involved in the decision making or delivery of care for this patient. (RAY COLLINS MD) Copy Copies To 1: [facility] [place] SUNSHINE HOROWITZ APRN Mar 03, 2022 16:07 RAY COLLINS MD Mar 06, 2022 06:50
[2022-03-03] MEDS ORDERED: LIDOCAINE 2% VISCOUS 15 ML UDC PO ONE (16:15)
--- NOTE | 2022-03-03 16:23 | Diagnostic Imaging Report ---
INDICATION: Right hand pain. TECHNIQUE: AP, oblique, and lateral views of the right hand were obtained. FINDINGS: No fracture or acute bony abnormality is seen. A plate and screws are seen in the distal radius. There is no acute appearing abnormality. IMPRESSION: Negative right hand. Dictated by: Dictated on workstation # [id number]
--- NOTE | 2022-03-03 17:08 | Diagnostic Imaging Report ---
CLINICAL INDICATION: Patient tripped over step at 1340 hours today causing her to fall. Patient complains of nose and upper lip pain and right hand/wrist pain. EXAM: Axial Head CT without IV contrast with sagittal and coronal reformations. Axial Maxillofacial CT scan without IV contrast with sagittal and coronal reformations. Auto Exposure Controls were utilized during the CT exam to meet ALARA standards for radiation dose reduction. COMPARISON: Head CT without contrast dated 04/13/2017. FINDINGS: Head and maxillofacial CT: There is no evidence of acute cerebral infarct, intracranial hemorrhage, or gross mass effect. The brain parenchymal volume appears appropriate for patient's age. There are subtle patchy areas of low-attenuation white matter changes involving both cerebral hemispheres, likely representing mild chronic small vessel ischemic disease. There is normal montoya-white matter distinction. There is no significant midline shift or herniation. There is no evidence of hydrocephalus. The basal cisterns are unremarkable. There is slight bony irregularity involving left nasal bone of unknown age. There is no skull or maxillofacial fracture. The skull, extracranial soft tissue, and orbits are unremarkable. There is moderate fluid and mucosal thickening involving the sphenoid sinus. Temporal bones show no significant abnormality. IMPRESSION: 1: There is no evidence of acute intracranial process. There is no intracranial hemorrhage. 2: There is slight bony irregularity involving left nasal bone of unknown age. Clinical correlation for pain in this region would better evaluate. 3: There is no other concern for skull or maxillofacial fracture. Dictated by: Dictated on workstation # [id number]
[2022-03-03] MEDS ORDERED: AUGMENTIN 875 MG TAB (AMOXICILLIN/CLAVULANATE) PO ONE (17:30)
[2022-03-03] MEDS ORDERED: HYDROcodone/APAP 5 MG/325 MG (LORTAB) TAB PO ONE (17:45)
[2022-03-03] MEDS ORDERED: ACHD5005 PO (17:48)
[2022-03-03] MEDS ORDERED: AMOX1TAB12 PO (17:48)
[2022-03-03 18:00] VITALS: BP 140/73
== END 2022-03-03 17:59 | disposition home or self-care (01) ==
LOC: EDUNIT# 15:26 → ER 15:29
DX: S02.2XXA Fracture of nasal bones, initial encounter for closed fracture (principal); S01.511A Laceration without foreign body of lip, initial encounter; S60.221A Contusion of right hand, initial encounter; W01.0XXA Fall on same level from slipping, tripping and stumbling without subsequent striking against object, initial encounter
CPT/HCPCS: 12011; 70450; 70486; 73130

== ENCOUNTER 2022-06-01 09:57 | Outpatient (RCR) | payer BC ==
[~2022-06-01 09:57] MED LIST changes: +AMOX1TAB12 PO
== END 2022-06-20 | disposition home or self-care (01) ==
LOC: ONC 09:57
PROVIDERS: ATTEND Internal Medicine Hematology & Oncology
DX: C50.911 Malignant neoplasm of unspecified site of right female breast (principal)
CPT/HCPCS: 99213

== ENCOUNTER → 2022-06-08 | Outpatient (CLI) | payer BC ==
--- NOTE | 2022-06-08 16:22 | Diagnostic Imaging Report ---
INDICATION: Routine screening. COMPARISON: 06/05/2021 and 06/04/2020. TECHNIQUE: 2D and 3D bilateral screening mammography was performed with CAD. FINDINGS: Both breasts are heterogeneously dense, limiting the sensitivity of mammography. The parenchymal pattern is stable. No mass or malignant-appearing microcalcifications are seen. The axillae are unremarkable. IMPRESSION: No mammographic features suspicious for malignancy are identified. ACR BI-RADS Category 1: Negative. Result letter will be mailed to the patient. Note: At least 10% of breast cancer is not imaged by mammography. Dictated by: Dictated on workstation # [id number]
== END ==
LOC: RAD 15:25
PROVIDERS: ATTEND Internal Medicine Hematology & Oncology
DX: Z12.31 Encounter for screening mammogram for malignant neoplasm of breast (principal)
CPT/HCPCS: 77063; 77067

== ENCOUNTER → 2022-06-08 | Outpatient (CLI) | payer BC ==
--- NOTE | 2022-06-08 16:58 | Diagnostic Imaging Report ---
INDICATION: Postmenopausal screening COMPARISON: None FINDINGS: AP Spine L1-L4: [BMD (g/cm2): 0.953] [T-Score: -2.1] [Z-Score: -1.5] [BMD Previous: NA] [BMD % Change: NA] LT Hip Neck: [BMD (g/cm2): 0.833] [T-Score: -1.5] [Z-Score: -0.6] LT Hip Total: [BMD (g/cm2):0.981] [T-Score:-0.2] [Z-Score: 0.3] [BMD Previous: NA] [BMD % Change: NA] RT Hip Neck: [BMD (g/cm2):0.909] [T-Score:-0.9] [Z-Score:0.0] RT Hip Total: [BMD (g/cm2):1.024] [T-score:0.1] [Z-Score:0.7] [BMD Previous:NA] [BMD % Change:NA] *Indicates significant change from prior examination based on 95% confidence level. World Health Organization criteria for BMD interpretation classify patients as Normal (T-score at or above -1.0), Osteopenic (T-score between -1.0 and -2.5) or Osteoporotic (T-score at or below -2.5). LIMITATIONS AND MODIFICATION: None. FRACTURE RISK (FRAX SCORE): The ten year probability of (%): Major Osteoporotic Fracture: [NA] Hip Fracture: [NA] IMPRESSION: 1. Osteopenia 2. See below National Osteoporosis Foundation guidelines on when to potentially initiate pharmacologic therapy. Based on the National Osteoporosis Foundation Guidelines, pharmacologic treatment should be initiated in any of the following, unless clinical conditions suggest otherwise: * Any patient with prior fragility fracture of the hip or vertebrae. A spine fracture indicates 5X risk for subsequent spine fracture and 2X risk for subsequent hip fracture. * Osteoporosis (T-score <-2.5). * Postmenopausal women and men age 50 and older with low bone mass/osteopenia (T-score between -1.0 and -2.5) by DXA and 10-year major osteoporotic fracture greater than 20% or a 10-year probability of hip fracture greater than 3%. These fracture risks are supplied above in the FRAX score, if applicable. * Clinician judgement and/or patient preferences may indicate treatment for people with 10-year fracture probabilities above or below these levels. Dictated by: Dictated on workstation # [id number]
== END ==
LOC: RAD 14:45
PROVIDERS: ATTEND Internal Medicine Hematology & Oncology
DX: C50.911 Malignant neoplasm of unspecified site of right female breast (principal); M85.80 Other specified disorders of bone density and structure, unspecified site; Z78.0 Asymptomatic menopausal state
CPT/HCPCS: 77080

== ENCOUNTER 2022-11-30 15:32 | Outpatient (RCR) | payer BC | END 2022-12-21 | disposition home or self-care (01) | LOC: ONC 15:32 | PROVIDERS: ATTEND Internal Medicine Hematology & Oncology | DX: C50.911 Malignant neoplasm of unspecified site of right female breast (principal); E66.9 Obesity, unspecified | CPT/HCPCS: 99213 ==

== ENCOUNTER 2023-05-31 15:32 | Outpatient (RCR) | payer BC | END 2023-06-20 | disposition home or self-care (01) | LOC: ONC 15:32 | PROVIDERS: ATTEND Internal Medicine Hematology & Oncology | DX: C50.911 Malignant neoplasm of unspecified site of right female breast (principal); E66.9 Obesity, unspecified ==

== ENCOUNTER → 2023-06-16 | Outpatient (CLI) | payer BC ==
--- NOTE | 2023-06-17 13:20 | Diagnostic Imaging Report ---
INDICATION: Bilateral digital 3-D and 3-D screening with CAD. The current study was also evaluated with a Computer Aided Detection (CAD) system. COMPARISON: 06/11, 06/10 and 05/2020 FINDINGS: density 3 No breast mass, spiculated lesion, suspicious calcifications or changes to suggest malignancy. IMPRESSION: BI-RADS Category 1 ACR BI-RADS Category 1: Negative. Result letter will be mailed to the patient. Note: At least 10% of breast cancer is not imaged by mammography. Dictated by: Dictated on workstation # [id number]
== END ==
LOC: RAD 15:49
PROVIDERS: ATTEND Internal Medicine Hematology & Oncology
DX: Z12.31 Encounter for screening mammogram for malignant neoplasm of breast (principal); C50.911 Malignant neoplasm of unspecified site of right female breast
CPT/HCPCS: 77063; 77067

== ENCOUNTER 2023-08-24 15:37 | Outpatient (RCR) | payer BC | END 2023-09-20 | disposition home or self-care (01) | LOC: ONC 15:37 | PROVIDERS: ATTEND Internal Medicine Hematology & Oncology | DX: C50.911 Malignant neoplasm of unspecified site of right female breast (principal); E66.9 Obesity, unspecified | CPT/HCPCS: 99214 ==